=== PATIENT | female | born 1940 | race Two or more races ===

== ENCOUNTER 2020-07-01 13:59 | Inpatient (IN) | payer OTHER ==
[~2020-07-01] VITALS: Ht 154.9 cm; Wt 70.2 kg
[2020-07-01 15:27] LABS: Basophils # (auto) 0 10 ^3/uL (0-0.2); Basophils % (auto) 0.3 % (0.0-2.0); Eosinophils # (auto) 0 10 ^3/uL (0-0.8); Hematocrit 38.3 % (36.0-46.0); Hemoglobin 12.1 g/dL (12.2-16.2); Lymphocytes # (auto) 0.6 10 ^3/uL (0.4-5.4); Lymphocytes % (auto) 7.5 % (10.0-50.0); Mean Corpuscular Hemoglobin 28.6 pg (28.0-32.0); Mean Corpuscular Hgb Conc. 31.7 g/dL (32.0-36.0); Mean Corpuscular Volume 90.4 fL (80.0-100.0); Monocytes # (auto) 0.5 10 ^3/uL (0-1.3); Neutrophils # (auto) 6.6 10 ^3/uL (1.6-8.6); Neutrophils % (auto) 85.2 % (37.0-80.0); Platelet Count (auto) 290 10^3/uL (140-450); Red Blood Cells 4.23 10^6/uL (4.0-5.20); Red Cell Distribution Width 14.3 % (11.8-14.3); White Blood Cell 7.7 10^3/uL (4.4-10.8)
[2020-07-01 15:45] LABS: Albumin 2.7 g/dL (3.4-5.0); Anion Gap 13 (5-15); Blood Urea Nitrogen 32 mg/dL (7-18); Calcium 8.6 mg/dL (8.5-10.1); Carbon Dioxide 21 mmol/L (21-32); Chloride 95 mmol/L (98-107); Potassium 5.2 mmol/L (3.5-5.1); Sodium 129 mmol/L (136-145)
[2020-07-01 15:53] LABS: Alanine Aminotransferase 15 U/L (13-56); Alkaline Phosphatase 80 U/L (45-117); Aspartate Aminotransferase 19 U/L (15-37); BUN/Creatinine Ratio 17.8; Bilirubin, Total 0.5 mg/dL (0.2-1.0); GFR African American 35 mL/min; GFR Non-African American 29 mL/min; Total Protein 7.6 g/dL (6.4-8.2)
[2020-07-01 15:59] LABS: Glucose 564 mg/dL (74-106)
[2020-07-01] MEDS ORDERED: SODIUM CHLORIDE 0.9% 1,000 ML IV ONE ×2 (16:15→21:15)
[2020-07-01] MEDS ORDERED: AZITHROMYCIN 500MG/ 250ML 250 ML IV ONE (18:45)
[2020-07-01] MEDS ORDERED: DexAMETHasone SOD PHOS 10MG/1ML VIAL INJ IV ONE (18:45)
[2020-07-01] MEDS ORDERED: ASCORBIC ACID 500 MG TAB PO ONE (19:00)
[2020-07-01] MEDS ORDERED: InsuLIN REG 1unit/0.01ml Soln (100units/ml) SC ONE (20:45)
[2020-07-01] MEDS ORDERED: MORPHINE SULF INJ 2 MG/ML SYRINGE 1ML IV PRN (21:15)
[2020-07-01] MEDS ORDERED: NITROGLYCERIN 0.4 MG SL TAB SL PRN (21:15)
[2020-07-01] MEDS ORDERED: DEXTROSE (50%) 50ML SYRG IV PRN (21:15)
[2020-07-01] MEDS ORDERED: ALBUMIN 25% 100 ML IV ONE (21:30)
[2020-07-01] MEDS ORDERED: cefTRIAXone 1GM/50ML D5W 50 ML IV ONE (21:30)
[2020-07-01] MEDS: ALBUTEROL SULF HFA 90MCG INH 200DOSE IN SCH (22:00)
[2020-07-01] MEDS ORDERED: InsuLIN REG 1unit/0.01ml Soln (100units/ml) SC SCH (22:00)
[2020-07-01] MEDS: ACCU-CHEK COMFORT CURVE STRIP VI SCH (23:59)
[2020-07-02 01:21] LABS: INR 0.97 (0.9-1.15)
[2020-07-02] MEDS: ALBUTEROL SULF HFA 90MCG INH 200DOSE IN SCH ×2 (06:00→14:00)
[2020-07-02] MEDS: methylPREDNISolone SOD SUCC 125 MG/2 ML VL IV SCH ×2 (06:07→14:48)
[2020-07-02] MEDS ORDERED: InsuLIN REG 1unit/0.01ml Soln (100units/ml) SC SCH (07:00)
[2020-07-02 08:00] VITALS: BP 144/80
[2020-07-02] MEDS: ACCU-CHEK COMFORT CURVE STRIP VI SCH ×4 (08:24→23:32)
[2020-07-02] MEDS ORDERED: INSULIN LANTUS (GLARGINE) 1 /0.01ml (100units/ml) SC ONE ×2 (08:45)
[2020-07-02] MEDS ORDERED: DEXTROSE (50%) 50ML SYRG IV PRN ×2 (08:45→09:00)
[2020-07-02] MEDS ORDERED: ACCU-CHEK COMFORT CURVE STRIP VI ONE (08:45)
[2020-07-02 09:00] VITALS: BP 144/80
[2020-07-02] MEDS ORDERED: InsuLIN REG 1unit/0.01ml Soln (100units/ml) SC ONE (09:00)
[2020-07-02 10:12] LABS: Basophils # (auto) 0 10 ^3/uL (0-0.2); Basophils % (auto) 0.4 % (0.0-2.0); Eosinophils # (auto) 0 10 ^3/uL (0-0.8); Hematocrit 36.3 % (36.0-46.0); Hemoglobin 11.6 g/dL (12.2-16.2); Lymphocytes # (auto) 0.6 10 ^3/uL (0.4-5.4); Lymphocytes % (auto) 8.8 % (10.0-50.0); Mean Corpuscular Hemoglobin 28.3 pg (28.0-32.0); Mean Corpuscular Volume 88.4 fL (80.0-100.0); Monocytes # (auto) 0.2 10 ^3/uL (0-1.3); Monocytes % (auto) 2.9 % (0.0-12.0); Neutrophils # (auto) 5.7 10 ^3/uL (1.6-8.6); Neutrophils % (auto) 87.9 % (37.0-80.0); Platelet Count (auto) 309 10^3/uL (140-450); Red Cell Distribution Width 13.9 % (11.8-14.3); White Blood Cell 6.5 10^3/uL (4.4-10.8)
[2020-07-02 10:29] LABS: Potassium 4.5 mmol/L (3.5-5.1)
[2020-07-02 10:38] LABS: BUN/Creatinine Ratio 25.2; Bilirubin, Total 0.5 mg/dL (0.2-1.0); Total Protein 7.4 g/dL (6.4-8.2)
[2020-07-02] MEDS ORDERED: LEVO25TA6 PO (10:49)
[2020-07-02] MEDS ORDERED: ACET-1156 PO (10:49)
[2020-07-02] MEDS ORDERED: ATOR40TA52 PO (10:49)
[2020-07-02] MEDS ORDERED: SITA50TA PO (10:49)
[2020-07-02] MEDS ORDERED: AMLO5TAB15 PO (10:49)
[2020-07-02] MEDS ORDERED: FER325T PO (10:49)
[2020-07-02] MEDS ORDERED: DOXE10CA PO (10:49)
[2020-07-02] MEDS ORDERED: INSUINJ18 SC (10:49)
[2020-07-02] MEDS ORDERED: MAGN200T11 PO (10:49)
[2020-07-02] MEDS ORDERED: INSU1INJ19 SC (10:49)
[2020-07-02] MEDS ORDERED: HYDR-2691 PO (10:49)
[2020-07-02] MEDS ORDERED: FENO145T27 PO (10:49)
[2020-07-02] MEDS: InsuLIN REG 1unit/0.01ml Soln (100units/ml) SC SCH ×3 (12:29→23:31)
[2020-07-02 13:00] VITALS: BP 137/70
[2020-07-02 17:00] VITALS: BP 152/80
[2020-07-02] MEDS ORDERED: ENOXAPARIN SOD 40 MG/0.4 ML SYRINGE SC ONE (18:46)
[2020-07-02] MEDS ORDERED: DexAMETHasone SOD PHOS 10MG/1ML VIAL INJ IV NR (19:00)
[2020-07-02] MEDS ORDERED: AZITHROMYCIN 500MG/ 250ML 250 ML IV SCH (19:00)
[2020-07-02] MEDS: cefTRIAXone 1GM/50ML D5W 50 ML IV SCH (20:28)
[2020-07-02] MEDS: ZINC SULFATE 220mg CAP or TAB PO SCH (20:28)
[2020-07-02] MEDS: CHOLECALCIFEROL (VITD3) 2,000 UNIT CAP PO SCH (20:29)
[2020-07-02] MEDS: DexAMETHasone SOD PHOS 10MG/1ML VIAL INJ IV SCH (20:30)
[2020-07-02] MEDS: ASCORBIC ACID 500 MG TAB PO SCH (22:07)
[2020-07-02 22:21] VITALS: BP 153/95
[2020-07-02 22:39] LABS: Urine Bacteria NONE SEEN /hpf (None Seen); Urine Blood Negative /uL (Negative); Urine Hyaline Cast FEW /lpf (0 - 2); Urine Specific Gravity 1.022 (1.001-1.035); Urine WBC 1 /hpf (0 - 5)
[2020-07-02] MEDS: INSULIN LANTUS (GLARGINE) 1 /0.01ml (100units/ml) SC SCH (23:31)
[2020-07-03 05:00] VITALS: BP 134/60
[2020-07-03] MEDS: ALBUTEROL SULF HFA 90MCG INH 200DOSE IN SCH ×2 (06:10→21:30)
[2020-07-03] MEDS: ACCU-CHEK COMFORT CURVE STRIP VI SCH ×4 (06:10→23:00)
[2020-07-03] MEDS: INSULIN LANTUS (GLARGINE) 1 /0.01ml (100units/ml) SC SCH ×2 (06:12→23:05)
[2020-07-03] MEDS: InsuLIN REG 1unit/0.01ml Soln (100units/ml) SC SCH ×4 (06:12→23:05)
[2020-07-03 07:03] LABS: Basophils # (auto) 0 10 ^3/uL (0-0.2); Basophils % (auto) 0.2 % (0.0-2.0); Eosinophils # (auto) 0 10 ^3/uL (0-0.8); Hematocrit 34.5 % (36.0-46.0); Hemoglobin 11.1 g/dL (12.2-16.2); Lymphocytes # (auto) 0.8 10 ^3/uL (0.4-5.4); Lymphocytes % (auto) 6.1 % (10.0-50.0); Mean Corpuscular Hemoglobin 27.6 pg (28.0-32.0); Mean Corpuscular Volume 86.1 fL (80.0-100.0); Monocytes # (auto) 0.4 10 ^3/uL (0-1.3); Monocytes % (auto) 3.1 % (0.0-12.0); Neutrophils # (auto) 12.1 10 ^3/uL (1.6-8.6); Neutrophils % (auto) 90.6 % (37.0-80.0); Nucleated Red Blood Cells % 0.1 %; Platelet Count (auto) 373 10^3/uL (140-450); Red Blood Cells 4.01 10^6/uL (4.0-5.20); Red Cell Distribution Width 13.8 % (11.8-14.3); White Blood Cell 13.4 10^3/uL (4.4-10.8)
[2020-07-03 07:35] LABS: Albumin 2.5 g/dL (3.4-5.0); Potassium 4.2 mmol/L (3.5-5.1)
[2020-07-03 07:37] LABS: BUN/Creatinine Ratio 35.8
[2020-07-03 07:40] LABS: Bilirubin, Total 0.3 mg/dL (0.2-1.0); Total Protein 6.4 g/dL (6.4-8.2)
[2020-07-03 08:52] VITALS: BP 135/74
[2020-07-03] MEDS: cefTRIAXone 1GM/50ML D5W 50 ML IV SCH (09:19)
[2020-07-03] MEDS: ZINC SULFATE 220mg CAP or TAB PO SCH (09:20)
[2020-07-03] MEDS: DexAMETHasone SOD PHOS 10MG/1ML VIAL INJ IV SCH (09:20)
[2020-07-03] MEDS: ASCORBIC ACID 500 MG TAB PO SCH ×2 (09:21→22:59)
[2020-07-03] MEDS: CHOLECALCIFEROL (VITD3) 2,000 UNIT CAP PO SCH (09:21)
[2020-07-03] MEDS ORDERED: REMDESIVIR PER PHARMACY 0 ML IV SCH ×2 (09:45→12:15)
[2020-07-03] MEDS ORDERED: FAMOTIDINE 20 MG TAB PO SCH (10:00)
[2020-07-03] MEDS ORDERED: ENOXAPARIN SOD 40 MG/0.4 ML SYRINGE SC SCH (10:00)
[2020-07-03] MEDS: ENOXAPARIN SOD 40 MG/0.4 ML SYRINGE SC SCH ×2 (10:00→22:59)
[2020-07-03] MEDS: FERROUS SULFATE 325 MG TAB PO SCH (12:15)
[2020-07-03] MEDS: FAMOTIDINE 20 MG TAB PO SCH (12:15)
[2020-07-03] MEDS: amLODIPine BESYLATE 5 MG TAB PO SCH (12:16)
[2020-07-03 13:00] VITALS: BP 145/65
[2020-07-03] MEDS: hydrALAZINE HCL 25 MG TAB PO SCH ×2 (14:54→23:06)
[2020-07-03] MEDS ORDERED: REMDESIVIR 200 MG in NS 210ml LOADING DOSE ADULT IV ONE (15:00)
[2020-07-03 17:00] VITALS: BP 145/75
[2020-07-03] MEDS: DOXEPIN HCL 10 MG CAP PO SCH (17:43)
[2020-07-03 22:00] VITALS: BP 126/60
[2020-07-04 06:00] VITALS: BP 130/67
[2020-07-04] MEDS: InsuLIN REG 1unit/0.01ml Soln (100units/ml) SC SCH ×3 (06:00→18:29)
[2020-07-04] MEDS: LEVOTHYROXINE SODIUM 25 MCG TAB PO SCH (06:18)
[2020-07-04] MEDS: hydrALAZINE HCL 25 MG TAB PO SCH (06:18)
[2020-07-04] MEDS: INSULIN LANTUS (GLARGINE) 1 /0.01ml (100units/ml) SC SCH ×2 (06:18→21:48)
[2020-07-04] MEDS: ACCU-CHEK COMFORT CURVE STRIP VI SCH ×3 (06:19→17:08)
[2020-07-04] MEDS: ALBUTEROL SULF HFA 90MCG INH 200DOSE IN SCH (06:30)
[2020-07-04 06:57] LABS: Basophils # (auto) 0 10 ^3/uL (0-0.2); Basophils % (auto) 0.1 % (0.0-2.0); Eosinophils # (auto) 0 10 ^3/uL (0-0.8); Hematocrit 33.9 % (36.0-46.0); Lymphocytes # (auto) 0.6 10 ^3/uL (0.4-5.4); Lymphocytes % (auto) 3.9 % (10.0-50.0); Mean Corpuscular Hgb Conc. 32.6 g/dL (32.0-36.0); Monocytes # (auto) 0.8 10 ^3/uL (0-1.3); Monocytes % (auto) 5.3 % (0.0-12.0); Neutrophils # (auto) 13.6 10 ^3/uL (1.6-8.6); Neutrophils % (auto) 90.7 % (37.0-80.0); Platelet Count (auto) 390 10^3/uL (140-450); Red Blood Cells 3.94 10^6/uL (4.0-5.20)
[2020-07-04 07:25] LABS: Potassium 3.5 mmol/L (3.5-5.1)
[2020-07-04 07:56] LABS: Albumin 2.3 g/dL (3.4-5.0); BUN/Creatinine Ratio 38.6; Bilirubin, Total 0.2 mg/dL (0.2-1.0); CRP High Sensitivity 6.58 mg/dL (< 0.3); Calcium 8.6 mg/dL (8.5-10.1); Total Protein 6.2 g/dL (6.4-8.2)
[2020-07-04 09:00] VITALS: BP 145/67
[2020-07-04] MEDS: DexAMETHasone SOD PHOS 10MG/1ML VIAL INJ IV SCH (09:18)
[2020-07-04] MEDS: ASCORBIC ACID 500 MG TAB PO SCH ×2 (09:19→21:48)
[2020-07-04] MEDS: ZINC SULFATE 220mg CAP or TAB PO SCH (09:19)
[2020-07-04] MEDS: amLODIPine BESYLATE 5 MG TAB PO SCH (09:19)
[2020-07-04] MEDS: FERROUS SULFATE 325 MG TAB PO SCH (09:19)
[2020-07-04] MEDS: CHOLECALCIFEROL (VITD3) 2,000 UNIT CAP PO SCH (09:20)
[2020-07-04] MEDS: FAMOTIDINE 20 MG TAB PO SCH (09:20)
[2020-07-04] MEDS: ENOXAPARIN SOD 40 MG/0.4 ML SYRINGE SC SCH (09:20)
[2020-07-04 13:00] VITALS: BP 128/52
[2020-07-04] MEDS: REMDESIVIR 100 MG in SODIUM CHL 0.9% 250 ML IV SCH (15:19)
[2020-07-04] MEDS: hydrALAZINE HCL 10 MG TAB PO SCH ×2 (15:34→21:47)
[2020-07-04 17:00] VITALS: BP 134/61
[2020-07-04] MEDS: DOXEPIN HCL 10 MG CAP PO SCH (18:00)
[2020-07-04] MEDS: ACETAMINOPHEN 325 MG TAB PO PRN ×2 (20:52→22:08)
[2020-07-04 22:00] VITALS: BP 137/56
[2020-07-05] MEDS: ACCU-CHEK COMFORT CURVE STRIP VI SCH ×5 (00:25→23:56)
[2020-07-05] MEDS: InsuLIN REG 1unit/0.01ml Soln (100units/ml) SC SCH ×5 (00:28→23:56)
[2020-07-05 05:42] VITALS: BP 141/70
[2020-07-05] MEDS: hydrALAZINE HCL 10 MG TAB PO SCH ×3 (06:07→22:09)
[2020-07-05 06:30] LABS: Basophils # (auto) 0 10 ^3/uL (0-0.2); Basophils % (auto) 0.3 % (0.0-2.0); Eosinophils # (auto) 0 10 ^3/uL (0-0.8); Hematocrit 35.6 % (36.0-46.0); Hemoglobin 11.6 g/dL (12.2-16.2); Lymphocytes # (auto) 0.5 10 ^3/uL (0.4-5.4); Lymphocytes % (auto) 4.5 % (10.0-50.0); Mean Corpuscular Hemoglobin 27.9 pg (28.0-32.0); Mean Corpuscular Hgb Conc. 32.5 g/dL (32.0-36.0); Monocytes # (auto) 0.6 10 ^3/uL (0-1.3); Monocytes % (auto) 5.6 % (0.0-12.0); Neutrophils # (auto) 10.2 10 ^3/uL (1.6-8.6); Neutrophils % (auto) 89.6 % (37.0-80.0); Platelet Count (auto) 399 10^3/uL (140-450); Red Blood Cells 4.14 10^6/uL (4.0-5.20); Red Cell Distribution Width 13.8 % (11.8-14.3); White Blood Cell 11.4 10^3/uL (4.4-10.8)
[2020-07-05] MEDS: INSULIN LANTUS (GLARGINE) 1 /0.01ml (100units/ml) SC SCH ×2 (06:33→22:09)
[2020-07-05] MEDS: LEVOTHYROXINE SODIUM 25 MCG TAB PO SCH (06:34)
[2020-07-05 07:50] LABS: Albumin 2.3 g/dL (3.4-5.0); Calcium 8.4 mg/dL (8.5-10.1); Potassium 3.4 mmol/L (3.5-5.1)
[2020-07-05 07:53] LABS: BUN/Creatinine Ratio 38.3; Bilirubin, Total 0.3 mg/dL (0.2-1.0); Total Protein 6.1 g/dL (6.4-8.2)
[2020-07-05 08:00] VITALS: BP 143/61
[2020-07-05] MEDS: ZINC SULFATE 220mg CAP or TAB PO SCH (09:33)
[2020-07-05] MEDS: DexAMETHasone SOD PHOS 10MG/1ML VIAL INJ IV SCH (09:33)
[2020-07-05] MEDS: FERROUS SULFATE 325 MG TAB PO SCH (09:33)
[2020-07-05] MEDS: amLODIPine BESYLATE 5 MG TAB PO SCH (09:34)
[2020-07-05] MEDS: ASCORBIC ACID 500 MG TAB PO SCH ×2 (09:34→22:03)
[2020-07-05] MEDS: CHOLECALCIFEROL (VITD3) 2,000 UNIT CAP PO SCH (09:34)
[2020-07-05] MEDS: FAMOTIDINE 20 MG TAB PO SCH (09:34)
[2020-07-05] MEDS: ENOXAPARIN SOD 40 MG/0.4 ML SYRINGE SC SCH (09:35)
[2020-07-05] MEDS: REMDESIVIR 100 MG in SODIUM CHL 0.9% 250 ML IV SCH (15:43)
[2020-07-05] MEDS: DOXEPIN HCL 10 MG CAP PO SCH ×2 (17:39→18:38)
[2020-07-05] MEDS: ALBUTEROL SULF HFA 90MCG INH 200DOSE IN SCH ×4 (17:39→22:00)
[2020-07-06] MEDS: InsuLIN REG 1unit/0.01ml Soln (100units/ml) SC SCH ×4 (06:00→23:16)
[2020-07-06] MEDS: ALBUTEROL SULF HFA 90MCG INH 200DOSE IN SCH ×4 (06:00→19:28)
[2020-07-06] MEDS: ACCU-CHEK COMFORT CURVE STRIP VI SCH ×4 (06:14→22:58)
[2020-07-06] MEDS: hydrALAZINE HCL 10 MG TAB PO SCH ×3 (06:18→23:08)
[2020-07-06] MEDS: LEVOTHYROXINE SODIUM 25 MCG TAB PO SCH (06:52)
[2020-07-06] MEDS: INSULIN LANTUS (GLARGINE) 1 /0.01ml (100units/ml) SC SCH ×2 (07:01→23:15)
[2020-07-06 07:04] LABS: Basophils # (auto) 0 10 ^3/uL (0-0.2); Basophils % (auto) 0.1 % (0.0-2.0); Eosinophils # (auto) 0 10 ^3/uL (0-0.8); Hematocrit 35.8 % (36.0-46.0); Hemoglobin 11.7 g/dL (12.2-16.2); Lymphocytes # (auto) 0.6 10 ^3/uL (0.4-5.4); Lymphocytes % (auto) 6.4 % (10.0-50.0); Mean Corpuscular Hemoglobin 28.2 pg (28.0-32.0); Mean Corpuscular Hgb Conc. 32.6 g/dL (32.0-36.0); Mean Corpuscular Volume 86.4 fL (80.0-100.0); Monocytes # (auto) 0.5 10 ^3/uL (0-1.3); Monocytes % (auto) 5.3 % (0.0-12.0); Neutrophils # (auto) 7.7 10 ^3/uL (1.6-8.6); Neutrophils % (auto) 88.2 % (37.0-80.0); Platelet Count (auto) 399 10^3/uL (140-450); Red Blood Cells 4.14 10^6/uL (4.0-5.20); Red Cell Distribution Width 13.8 % (11.8-14.3); White Blood Cell 8.8 10^3/uL (4.4-10.8)
[2020-07-06 07:41] LABS: Potassium 3.7 mmol/L (3.5-5.1)
[2020-07-06 08:00] VITALS: BP 140/62
[2020-07-06 08:03] LABS: Albumin 2.1 g/dL (3.4-5.0); BUN/Creatinine Ratio 33.3; Bilirubin, Total 0.2 mg/dL (0.2-1.0); CRP High Sensitivity 6.69 mg/dL (< 0.3); Calcium 8.3 mg/dL (8.5-10.1); Total Protein 5.7 g/dL (6.4-8.2)
[2020-07-06 09:00] VITALS: BP 140/62
[2020-07-06] MEDS: FERROUS SULFATE 325 MG TAB PO SCH (09:33)
[2020-07-06] MEDS: DexAMETHasone SOD PHOS 10MG/1ML VIAL INJ IV SCH (09:33)
[2020-07-06] MEDS: FAMOTIDINE 20 MG TAB PO SCH (09:34)
[2020-07-06] MEDS: amLODIPine BESYLATE 5 MG TAB PO SCH (09:34)
[2020-07-06] MEDS: ZINC SULFATE 220mg CAP or TAB PO SCH (09:34)
[2020-07-06] MEDS: ASCORBIC ACID 500 MG TAB PO SCH ×2 (09:34→23:07)
[2020-07-06] MEDS: CHOLECALCIFEROL (VITD3) 2,000 UNIT CAP PO SCH (09:35)
[2020-07-06] MEDS: ENOXAPARIN SOD 40 MG/0.4 ML SYRINGE SC SCH (09:35)
[2020-07-06 13:00] VITALS: BP 154/88
[2020-07-06] MEDS: REMDESIVIR 100 MG in SODIUM CHL 0.9% 250 ML IV SCH (15:38)
[2020-07-06 16:00] VITALS: BP 139/73
[2020-07-06] MEDS: DOXEPIN HCL 10 MG CAP PO SCH (18:05)
[2020-07-06 20:00] VITALS: BP 141/70
[2020-07-07] VITALS: BP 141/70
[2020-07-07 05:34] LABS: Basophils # (auto) 0 10 ^3/uL (0-0.2); Basophils % (auto) 0.3 % (0.0-2.0); Eosinophils # (auto) 0 10 ^3/uL (0-0.8); Eosinophils % (auto) 0.1 % (0.0-7.0); Hematocrit 33.4 % (36.0-46.0); Hemoglobin 10.8 g/dL (12.2-16.2); Lymphocytes # (auto) 0.4 10 ^3/uL (0.4-5.4); Mean Corpuscular Hemoglobin 27.9 pg (28.0-32.0); Mean Corpuscular Hgb Conc. 32.4 g/dL (32.0-36.0); Monocytes # (auto) 0.4 10 ^3/uL (0-1.3); Monocytes % (auto) 5.5 % (0.0-12.0); Neutrophils # (auto) 6.5 10 ^3/uL (1.6-8.6); Neutrophils % (auto) 88.1 % (37.0-80.0); Nucleated Red Blood Cells % 0.1 %; Platelet Count (auto) 362 10^3/uL (140-450); Red Blood Cells 3.89 10^6/uL (4.0-5.20); White Blood Cell 7.4 10^3/uL (4.4-10.8)
[2020-07-07] MEDS: ACCU-CHEK COMFORT CURVE STRIP VI SCH ×4 (05:40→23:04)
[2020-07-07] MEDS: ALBUTEROL SULF HFA 90MCG INH 200DOSE IN SCH ×3 (05:42→22:05)
[2020-07-07] MEDS: hydrALAZINE HCL 10 MG TAB PO SCH ×3 (05:48→22:04)
[2020-07-07 05:50] LABS: Albumin 2.1 g/dL (3.4-5.0); Calcium 8.4 mg/dL (8.5-10.1); Potassium 3.8 mmol/L (3.5-5.1)
[2020-07-07] MEDS: InsuLIN REG 1unit/0.01ml Soln (100units/ml) SC SCH ×4 (05:57→23:07)
[2020-07-07] MEDS: LEVOTHYROXINE SODIUM 25 MCG TAB PO SCH (06:00)
[2020-07-07 06:01] LABS: BUN/Creatinine Ratio 41.8; Bilirubin, Total 0.2 mg/dL (0.2-1.0); CRP High Sensitivity 6.64 mg/dL (< 0.3); Total Protein 5.6 g/dL (6.4-8.2)
[2020-07-07] MEDS: INSULIN LANTUS (GLARGINE) 1 /0.01ml (100units/ml) SC SCH ×2 (06:01→22:07)
[2020-07-07 08:00] VITALS: BP 140/70
[2020-07-07] MEDS: FAMOTIDINE 20 MG TAB PO SCH (10:44)
[2020-07-07] MEDS: ZINC SULFATE 220mg CAP or TAB PO SCH (10:44)
[2020-07-07] MEDS: DexAMETHasone SOD PHOS 10MG/1ML VIAL INJ IV SCH (10:44)
[2020-07-07] MEDS: FERROUS SULFATE 325 MG TAB PO SCH (10:44)
[2020-07-07] MEDS: CHOLECALCIFEROL (VITD3) 2,000 UNIT CAP PO SCH (10:45)
[2020-07-07] MEDS: ASCORBIC ACID 500 MG TAB PO SCH ×2 (10:45→22:04)
[2020-07-07] MEDS: ENOXAPARIN SOD 40 MG/0.4 ML SYRINGE SC SCH (10:45)
[2020-07-07] MEDS: amLODIPine BESYLATE 5 MG TAB PO SCH (10:46)
[2020-07-07] MEDS: REMDESIVIR 100 MG in SODIUM CHL 0.9% 250 ML IV SCH (15:09)
[2020-07-07 16:00] VITALS: BP 138/72
[2020-07-07] MEDS: DOXEPIN HCL 10 MG CAP PO SCH (18:48)
[2020-07-07 20:00] VITALS: BP 141/74
[2020-07-07 23:37] VITALS: BP 141/74
[2020-07-08] MEDS: ACCU-CHEK COMFORT CURVE STRIP VI SCH ×3 (06:02→18:34)
[2020-07-08] MEDS: ALBUTEROL SULF HFA 90MCG INH 200DOSE IN SCH (06:08)
[2020-07-08] MEDS: LEVOTHYROXINE SODIUM 25 MCG TAB PO SCH (06:17)
[2020-07-08] MEDS: hydrALAZINE HCL 10 MG TAB PO SCH ×2 (06:18→15:56)
[2020-07-08] MEDS: InsuLIN REG 1unit/0.01ml Soln (100units/ml) SC SCH ×3 (06:19→18:35)
[2020-07-08] MEDS: INSULIN LANTUS (GLARGINE) 1 /0.01ml (100units/ml) SC SCH (06:20)
[2020-07-08 06:44] LABS: Potassium 4.2 mmol/L (3.5-5.1)
[2020-07-08 07:13] LABS: Albumin 2.1 g/dL (3.4-5.0); BUN/Creatinine Ratio 33.9; Bilirubin, Total 0.2 mg/dL (0.2-1.0); Calcium 8.3 mg/dL (8.5-10.1); Total Protein 5.6 g/dL (6.4-8.2)
[2020-07-08 08:00] VITALS: BP 138/69
[2020-07-08] MEDS: ZINC SULFATE 220mg CAP or TAB PO SCH (08:44)
[2020-07-08] MEDS: DexAMETHasone SOD PHOS 10MG/1ML VIAL INJ IV SCH (08:44)
[2020-07-08] MEDS: FERROUS SULFATE 325 MG TAB PO SCH (08:44)
[2020-07-08] MEDS: ASCORBIC ACID 500 MG TAB PO SCH (08:45)
[2020-07-08] MEDS: FAMOTIDINE 20 MG TAB PO SCH (08:45)
[2020-07-08] MEDS: CHOLECALCIFEROL (VITD3) 2,000 UNIT CAP PO SCH (08:45)
[2020-07-08] MEDS: ENOXAPARIN SOD 40 MG/0.4 ML SYRINGE SC SCH (08:45)
[2020-07-08] MEDS: amLODIPine BESYLATE 5 MG TAB PO SCH (08:45)
[2020-07-08 14:53] VITALS: BP 138/69
[2020-07-08 16:00] VITALS: BP 138/62
== END 2020-07-08 18:27 | disposition home health service (06) | DRG 177 ==
LOC: ER 13:59 → TELE 14:00 → TELE-WESTW 07-02 08:00
PROVIDERS: ADMIT Internal Medicine; ATTEND Internal Medicine
PROC: XW033E5 Introduction of Remdesivir Anti-infective into Peripheral Vein, Percutaneous Approach, New Technology Group 5 (ICD-10-PCS; principal; 2020-07-03)
DX: U07.1 COVID-19 (principal); J12.89 Other viral pneumonia; J96.01 Acute respiratory failure with hypoxia; E87.1 Hypo-osmolality and hyponatremia; J45.901 Unspecified asthma with (acute) exacerbation; E11.65 Type 2 diabetes mellitus with hyperglycemia; D72.810 Lymphocytopenia; N18.9 Chronic kidney disease, unspecified; E03.9 Hypothyroidism, unspecified; E66.01 Morbid (severe) obesity due to excess calories; I12.9 Hypertensive chronic kidney disease with stage 1 through stage 4 chronic kidney disease, or unspecified chronic kidney disease; D50.9 Iron deficiency anemia, unspecified; Z68.30 Body mass index [BMI] 30.0-30.9, adult; E11.22 Type 2 diabetes mellitus with diabetic chronic kidney disease; Z90.710 Acquired absence of both cervix and uterus; Z82.49 Family history of ischemic heart disease and other diseases of the circulatory system
CPT/HCPCS: 36415; 36600; 71045; 80053; 81001; 82728; 82805; 82962; 83036; 83605; 84484; 85025; 85610; 86141; 87040; 87426; 93005; 94640; 96361; 96365; 96366; 96367; 96368; 96372; 96375; 99291; G0378; J0696; J1100; J1815; P9047

== ENCOUNTER → 2022-07-30 | Outpatient (CLI) | payer OTHER ==
[~2022-07-30] MED LIST: ACET-1156 PO; AMLO-489 PO; ATOR40TA52 PO; DOXE10CA PO; FENO145T27 PO; FER325T PO; HYDR25TA87 PO; INSU1INJ19 SC; INSUINJ18 SC; LEVO25TA6 PO; MAGN200T11 PO; SITA50TA PO
[2022-07-30 12:02] LABS: Albumin 3.7 g/dL (3.4-5.0); Calcium 9.2 mg/dL (8.5-10.1); Magnesium 2.2 mg/dL (1.6-2.6); Potassium 4.6 mmol/L (3.5-5.1)
[2022-07-30 12:08] LABS: Bilirubin, Total 0.3 mg/dL (0.2-1.0); Phosphorus 3.3 mg/dL (2.5-4.90); Total Protein 6.9 g/dL (6.4-8.2); Uric Acid 5.1 mg/dL (2.6-6.0)
== END | disposition home or self-care (01) ==
LOC: LAB 10:28
PROVIDERS: ATTEND Internal Medicine Nephrology
DX: E11.22 Type 2 diabetes mellitus with diabetic chronic kidney disease (principal); N18.30 Chronic kidney disease, stage 3 unspecified; E83.39 Other disorders of phosphorus metabolism; R80.9 Proteinuria, unspecified; M10.9 Gout, unspecified
CPT/HCPCS: 36415; 80053; 82306; 83036; 83735; 83970; 84100; 84550

== ENCOUNTER → 2022-08-06 | Outpatient (CLI) | payer OTHER | END | disposition home or self-care (01) | LOC: LAB 09:25 | PROVIDERS: ATTEND Nurse Practitioner Family | DX: E11.22 Type 2 diabetes mellitus with diabetic chronic kidney disease (principal); N18.9 Chronic kidney disease, unspecified | CPT/HCPCS: 36415; 83036 ==

== ENCOUNTER → 2022-10-22 | Outpatient (CLI) | payer OTHER ==
[2022-10-22 13:12] LABS: Basophils # (auto) 0.1 10 ^3/uL (0-0.2); Basophils % (auto) 1.3 % (0.0-2.0); Eosinophils # (auto) 0.5 10 ^3/uL (0-0.8); Hematocrit 36.8 % (36.0-46.0); Hemoglobin 11.7 g/dL (12.2-16.2); Lymphocytes # (auto) 2.1 10 ^3/uL (0.4-5.4); Lymphocytes % (auto) 23.2 % (10.0-50.0); Mean Corpuscular Hemoglobin 28.5 pg (28.0-32.0); Mean Corpuscular Hgb Conc. 31.8 g/dL (32.0-36.0); Mean Corpuscular Volume 89.6 fL (80.0-100.0); Monocytes # (auto) 0.5 10 ^3/uL (0-1.3); Monocytes % (auto) 5.4 % (0.0-12.0); Neutrophils # (auto) 5.8 10 ^3/uL (1.6-8.6); Neutrophils % (auto) 64.1 % (37.0-80.0); Red Blood Cells 4.11 10^6/uL (4.0-5.20); Red Cell Distribution Width 15.3 % (11.8-14.3)
[2022-10-22 13:33] LABS: Urine Bacteria NONE SEEN /hpf (None Seen); Urine Blood Negative /uL (Negative); Urine Specific Gravity 1.019 (1.001-1.035); Urine WBC 2 /hpf (0 - 5)
[2022-10-22 13:42] LABS: Albumin 3.7 g/dL (3.4-5.0); Calcium 9.4 mg/dL (8.5-10.1); Potassium 4.4 mmol/L (3.5-5.1)
[2022-10-22 13:48] LABS: BUN/Creatinine Ratio 26.7 (10.0-20.0); Bilirubin, Total 0.3 mg/dL (0.2-1.0); Total Protein 7.6 g/dL (6.4-8.2); Uric Acid 6.8 mg/dL (2.6-6.0)
== END | disposition home or self-care (01) ==
LOC: LAB 12:37
PROVIDERS: ATTEND Internal Medicine Nephrology
DX: N18.30 Chronic kidney disease, stage 3 unspecified (principal); D63.1 Anemia in chronic kidney disease; N39.0 Urinary tract infection, site not specified; R80.9 Proteinuria, unspecified; M10.9 Gout, unspecified; E55.9 Vitamin D deficiency, unspecified; E11.21 Type 2 diabetes mellitus with diabetic nephropathy; E21.3 Hyperparathyroidism, unspecified
CPT/HCPCS: 36415; 80053; 81001; 82306; 82570; 83970; 84550; 85025

== ENCOUNTER → 2023-02-18 | Outpatient (CLI) | payer OTHER ==
[~2023-02-18] MED LIST changes: -ACET-1156 PO; +ACET-1881 PO; -AMLO-489 PO; +AMLO1TAB22 PO
[2023-02-18 12:32] LABS: Potassium 4.8 mmol/L (3.5-5.1)
[2023-02-18 12:44] LABS: BUN/Creatinine Ratio 29.1 (10.0-20.0); Bilirubin, Total 0.4 mg/dL (0.2-1.0); Calcium 9.2 mg/dL (8.5-10.1); Magnesium 2.5 mg/dL (1.6-2.6); Phosphorus 2.9 mg/dL (2.5-4.90); Total Protein 7.5 g/dL (6.4-8.2); Uric Acid 6.6 mg/dL (2.6-6.0)
== END | disposition home or self-care (01) ==
LOC: LAB 11:42
PROVIDERS: ATTEND Internal Medicine Nephrology
DX: E11.22 Type 2 diabetes mellitus with diabetic chronic kidney disease (principal); N18.30 Chronic kidney disease, stage 3 unspecified; D63.1 Anemia in chronic kidney disease; E11.21 Type 2 diabetes mellitus with diabetic nephropathy; E55.9 Vitamin D deficiency, unspecified; M10.9 Gout, unspecified; R80.9 Proteinuria, unspecified; E21.3 Hyperparathyroidism, unspecified; N39.0 Urinary tract infection, site not specified
CPT/HCPCS: 36415; 80053; 83036; 83735; 83970; 84100; 84550

== ENCOUNTER 2023-12-30 16:12 | Emergency (ER) | payer MEDICARE, OTHER ==
[~2023-12-30] VITALS: Ht 157.5 cm; Wt 64.2 kg
[2023-12-30 17:08] LABS: Urine Bacteria FEW /hpf (None Seen); Urine Blood Negative /uL (Negative); Urine Clarity Clear (Clear); Urine Color Light-Yellow (Yellow); Urine Protein, UAD Negative (Negative); Urine Specific Gravity 1.024 (1.001-1.035); Urine Urobilinogen Normal (Negative); Urine WBC 37 /hpf (0 - 5)
[2023-12-30 18:36] LABS: Basophils # (auto) 0.1 10 ^3/uL (0-0.2); Basophils % (auto) 1.2 % (0.0-2.0); Eosinophils # (auto) 0.2 10 ^3/uL (0-0.8); Hematocrit 42.4 % (36.0-46.0); Hemoglobin 13.4 g/dL (12.2-16.2); Lymphocytes # (auto) 2.4 10 ^3/uL (0.4-5.4); Lymphocytes % (auto) 19.7 % (10.0-50.0); Mean Corpuscular Hemoglobin 28.8 pg (28.0-32.0); Mean Corpuscular Hgb Conc. 31.5 g/dL (32.0-36.0); Mean Corpuscular Volume 91.5 fL (80.0-100.0); Monocytes # (auto) 0.6 10 ^3/uL (0-1.3); Monocytes % (auto) 5.1 % (0.0-12.0); Neutrophils # (auto) 8.9 10 ^3/uL (1.6-8.6); Nucleated Red Blood Cells % 0.1 %; Red Blood Cells 4.63 10^6/uL (4.0-5.20); Red Cell Distribution Width 14.1 % (11.8-14.3); White Blood Cell 12.3 10^3/uL (4.4-10.8)
[2023-12-30 18:58] LABS: Alanine Aminotransferase 19 U/L (7-40); Alkaline Phosphatase 107 U/L (46-116); Anion Gap 6 (5-15); Aspartate Aminotransferase 16 U/L (13-40); BUN/Creatinine Ratio 21.2 (10.0-20.0); Bilirubin, Total 0.4 mg/dL (0.2-1.0); Blood Urea Nitrogen 40 mg/dL (9-23); Calcium 10.4 mg/dL (8.5-10.1); Carbon Dioxide 26 mmol/L (20-30); Chloride 105 mmol/L (98-107); Glucose 323 mg/dL (74-106); Potassium 4.9 mmol/L (3.5-5.1); Sodium 137 mmol/L (136-145); Total Protein 7.8 g/dL (5.7-8.2)
[2023-12-30 20:34] VITALS: BP 159/85; PULSE 65; RESP 16; O2SAT 95
[2023-12-30] MEDS ORDERED: PHEN95TA10 PO (20:34)
[2023-12-30] MEDS ORDERED: CEPH500T PO (20:34)
[2023-12-30] MEDS: CEPHALEXIN 250 MG CAP PO ONE (20:53)
[2023-12-30] MEDS: InsuLIN REG 1unit/0.01ml Soln (100units/ml) SC ONE (20:57)
== END 2023-12-30 21:08 | disposition home or self-care (01) ==
LOC: ER 16:12
DX: E11.29 Type 2 diabetes mellitus with other diabetic kidney complication (principal); N28.9 Disorder of kidney and ureter, unspecified; J45.909 Unspecified asthma, uncomplicated; E78.5 Hyperlipidemia, unspecified; I10 Essential (primary) hypertension; Z90.710 Acquired absence of both cervix and uterus
CPT/HCPCS: 36415; 71045; 80053; 81001; 82010; 82962; 84484; 85025; 99284; A4215; J1815; J7030

== ENCOUNTER 2024-04-01 18:04 | Emergency (ER) | payer OTHER, MEDICAID ==
[~2024-04-01] VITALS: Ht 165.1 cm; Wt 61.7 kg
[~2024-04-01 18:04] MED LIST changes: +CEPH500T PO; +PHEN95TA10 PO
[2024-04-01 19:58] LABS: Urine Bacteria None Seen /hpf (None Seen)
[2024-04-01 20:05] LABS: Basophils # (auto) 0.1 10 ^3/uL (0-0.2); Eosinophils # (auto) 0 10 ^3/uL (0-0.8); Eosinophils % (auto) 0.4 % (0.0-7.0); Hematocrit 39.2 % (36.0-46.0); Hemoglobin 12.7 g/dL (12.2-16.2); Lymphocytes # (auto) 1.7 10 ^3/uL (0.4-5.4); Lymphocytes % (auto) 17.8 % (10.0-50.0); Mean Corpuscular Hemoglobin 30.2 pg (28.0-32.0); Mean Corpuscular Hgb Conc. 32.5 g/dL (32.0-36.0); Mean Corpuscular Volume 92.9 fL (80.0-100.0); Monocytes # (auto) 0.6 10 ^3/uL (0-1.3); Monocytes % (auto) 6.5 % (0.0-12.0); Neutrophils # (auto) 7.3 10 ^3/uL (1.6-8.6); Neutrophils % (auto) 74.3 % (37.0-80.0); Nucleated Red Blood Cells % 0.1 %; Platelet Count (auto) 242 10^3/uL (140-450); Red Blood Cells 4.22 10^6/uL (4.0-5.20); White Blood Cell 9.8 10^3/uL (4.4-10.8)
[2024-04-01 20:12] LABS: Alanine Aminotransferase 14 U/L (7-40); Albumin 4.8 g/dL (3.2-4.8); Alkaline Phosphatase 45 U/L (46-116); Anion Gap 9 (5-15); Aspartate Aminotransferase 16 U/L (13-40); BUN/Creatinine Ratio 13.8 (10.0-20.0); Bilirubin, Total 0.4 mg/dL (0.2-1.0); Blood Urea Nitrogen 27 mg/dL (9-23); Carbon Dioxide 22 mmol/L (20-30); Chloride 105 mmol/L (98-107); Glucose 299 mg/dL (74-106); Lipase 119 U/L (12-53); Potassium 4.3 mmol/L (3.5-5.1); Sodium 136 mmol/L (136-145); Total Protein 7.4 g/dL (5.7-8.2)
[2024-04-01 20:18] LABS: Urine Blood Negative /uL (Negative); Urine Clarity Clear (Clear); Urine Color Light-Yellow (Yellow); Urine Protein, UAD TRACE (Negative); Urine Specific Gravity 1.027 (1.001-1.035); Urine Urobilinogen Normal (Negative); Urine WBC 1 /hpf (0 - 5); Urine pH 5.5 (5.0-9.0)
[2024-04-01] MEDS: SODIUM CHLORIDE 0.9% 1,000 ML IV ONE (21:30)
[2024-04-01] MEDS: MORPHINE SULFATE 4 MG/ML SYR/VIAL IV ONE (21:47)
[2024-04-01] MEDS: PANTOPRAZOLE 40 MG/10 ML VIAL INJ IV ONE (21:55)
[2024-04-01] MEDS: ONDANSETRON HCL 4 MG/2 ML VIAL IV ONE (21:55)
[2024-04-01] MEDS: IOHEXOL 300 MG/ML 100ML BOTTLE IJ ONE (22:16)
[2024-04-02 02:09] VITALS: TEMP 98.1
[2024-04-02 02:10] VITALS: PULSE 80; RESP 17; O2SAT 97
[2024-04-02] MEDS: SOD CHL 0.45% 1,000 ML IV ONE (04:15)
[2024-04-02 07:00] VITALS: BP 147/56; PULSE 73; RESP 17; O2SAT 97
== END 2024-04-02 07:04 | disposition home or self-care (01) ==
LOC: ER 18:04
DX: K85.90 Acute pancreatitis without necrosis or infection, unspecified (principal); R10.13 Epigastric pain; R53.1 Weakness; R11.2 Nausea with vomiting, unspecified; I12.9 Hypertensive chronic kidney disease with stage 1 through stage 4 chronic kidney disease, or unspecified chronic kidney disease; E11.22 Type 2 diabetes mellitus with diabetic chronic kidney disease; N18.30 Chronic kidney disease, stage 3 unspecified; E78.5 Hyperlipidemia, unspecified; J45.909 Unspecified asthma, uncomplicated; Z90.710 Acquired absence of both cervix and uterus; Z79.899 Other long term (current) drug therapy
CPT/HCPCS: 36415; 74176; 80053; 81001; 82962; 83690; 85025; 96361; 96374; 96375; 99285; J2405; J2470; J7030